=== PATIENT | male | born 1995 | race African-American/Black ===

== ENCOUNTER 2023-05-20 15:24 | Emergency (ER) | payer MEDICAID ==
[~2023-05-20] VITALS: Ht 185.4 cm; Wt 90.0 kg
[2023-05-20 15:29] VITALS: BP 148/82; O2SAT 98
[2023-05-20] MEDS ORDERED: HYDROCODONE/ACETAMINOPHEN 5/325MG TABLET PO ONE (15:45)
[2023-05-20] MEDS ORDERED: IBUP-2030 MT (18:35)
[2023-05-20 22:19] VITALS: PULSE 88; RESP 16; TEMP 98
== END 2023-05-20 22:21 | disposition home or self-care (01) ==
LOC: ER 15:24
DX: S09.90XA Unspecified injury of head, initial encounter (principal); Y08.89XA Assault by other specified means, initial encounter; Y93.9 Activity, unspecified; Y92.89 Other specified places as the place of occurrence of the external cause; Y99.8 Other external cause status
CPT/HCPCS: 73140; 99284